=== PATIENT | male | born 1995 | race Hispanic/Latino ===

== ENCOUNTER 2017-09-02 20:55 | Emergency (ER) | payer SELFPAY ==
[~2017-09-02] VITALS: Ht 177.8 cm; Wt 72.8 kg
[2017-09-02] MEDS ORDERED: AMOX/K CLAV875 M1 PO (22:50)
[2017-09-02 23:28] VITALS: BP 122/70
== END 2017-09-02 23:28 | disposition home or self-care (01) | DRG 125 ==
LOC: ED 20:55
PROC: 08QNXZZ Repair Right Upper Eyelid, External Approach (ICD-10-PCS; principal; 2017-09-02)
DX: S01.111A Laceration without foreign body of right eyelid and periocular area, initial encounter (principal); W54.8XXA Other contact with dog, initial encounter